=== PATIENT | male | born 2000 | race Caucasian/White ===

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

== ENCOUNTER 2022-03-18 01:35 | Emergency (ER) | payer OTHER ==
[2022-03-18 01:41] VITALS: RESP 16; TEMP 98.4
[2022-03-18] MEDS ORDERED: ORPHENADRINE 30 MG/ML 2 ML VIAL IM STA (01:53)
[2022-03-18] MEDS ORDERED: KETOROLAC 15 MG/ML 1 ML VIAL IM STA (01:53)
--- NOTE | 2022-03-18 02:19 | ED ---
General Adult HPI - General Chief complaint: Extremity Problem,Nontraumatic Stated complaint: Left leg pain Time Seen by Provider: 03/18/22 01:43 Source: patient Mode of arrival: ambulatory Limitations: no limitations - History of Present Illness Initial comments: Patient is a 21-year-old male presenting with chief complaint of leg pain. Patient states that he has had cramping in his calf for the last year. Patient is concerned for a blood clot. He denies any swelling or discoloration. Pain comes on randomly, can be at rest or during exertion. Patient also states that he has felt a "twinge" in his chest that started 6 months ago. He states that at times he can be, out of breath quickly. Patient does smoke marijuana and vapes heavily daily. No palpitations, weakness, lightheadedness, nausea, vomiting, headache, vision or hearing changes, fever, chills. - Related Data Previous Rx's Medication Instructions Recorded Cyclobenzaprine [Flexeril] 10 mg PO HS PRN #15 tab 03/18/22 Allergies Allergy/AdvReac Type Severity Reaction Status Date / Time No Known Allergies Allergy Verified 03/18/22 01:36 Review of Systems ROS Statement: Those systems with pertinent positive or pertinent negative responses have been documented in the HPI. ROS Other: All systems not noted in ROS Statement are negative. Past Medical History Past Medical History: No Reported History Additional Past Medical History / Comment(s): Chronic Migraines, IBS History of Any Multi-Drug Resistant Organisms: None Reported Past Surgical History: Adenoidectomy, Tonsillectomy Past Psychological History: ADD/ADHD, Anxiety Smoking Status: Vaper Past Alcohol Use History: None Reported Past Drug Use History: Marijuana General Exam Limitations: no limitations General appearance: alert, in no apparent distress Head exam: Present: atraumatic, normocephalic, normal inspection Eye exam: Present: normal appearance Neck exam: Present: normal inspection Respiratory exam: Present: normal lung sounds bilaterally. Absent: respiratory distress, wheezes, rales, rhonchi, stridor Cardiovascular Exam: Present: regular rate, normal rhythm, normal heart sounds. Absent: systolic murmur, diastolic murmur, rubs, gallop, clicks Left Lower Leg exam: Present: full ROM. Absent: tenderness, swelling, deformity Neurovascular tendon exam: Absent: no vascular compromise (Distal pulses 2+), abnormal cap refill, motor deficit, sensory deficit Neurological exam: Present: alert, oriented X3, CN II-XII intact Psychiatric exam: Present: normal affect, normal mood Skin exam: Present: warm, dry, intact, normal color. Absent: rash Course Vital Signs 03/18/22 03/18/22 03/18/22 01:38 02:02 04:07 Temperature 98.4 F Pulse Rate 89 75 Respiratory 16 16 Rate Blood Pressure 124/75 126/73 108/70 O2 Sat by Pulse 99 99 Oximetry Medical Decision Making - Medical Decision Making Was pt. sent in by a medical professional or institution (, TWIN, MANAGER HEMATOLOGY, urgent care, hospital, or long-term...) When possible be specific @ -[No] Did you speak to anyone other than the patient for history (EMS, parent, family, police, friend...)? What history was obtained from this source @ -[No] Did you review nursing and triage notes (agree or disagree)? Why? @ -[I reviewed and agree with nursing and triage notes] Were old charts reviewed (outside hosp., previous admission, EMS record, old EKG, old radiological studies, urgent care reports/EKG's, long-term records)? Report findings @ -[No old charts were reviewed] Differential Diagnosis (chest pain, altered mental status, abdominal pain women, abdominal pain men, vaginal bleeding, weakness, fever, dyspnea, syncope, headache, dizziness, GI bleed, back pain, seizure, CVA, palpatations, mental health)? @ -Differential includes DVT, muscle spasm, muscle strain EKG interpreted by me (3pts min.). @ -[As above] X-rays interpreted by me (1pt min.). @ -Chest x-ray shows no acute process CT interpreted by me (1pt min.). @ -[None done] U/S interpreted by me (1pt. min.). @ -[None done] What testing was considered but not performed or refused? (CT, X-rays, U/S, labs)? Why? @ -[None] What meds were considered but not given or refused? Why? @ -[None] Did you discuss the management of the patient with other professionals (professionals i.e. , TWIN, MANAGER HEMATOLOGY, lab, RT, psych nurse, social science research assistant, truck sales manager, teacher, weapons officer, manager of case management)? Give summary @ -[No] Was smoking cessation discussed for >3mins.? @ -[No] Was critical care preformed (if so, how long)? @ -[No] Were there social determinants of health that impacted care today? How? (Homelessness, low income, unemployed, alcoholism, drug addiction, transportation, low edu. Level, literacy, decrease access to med. care, senior living, rehab)? @ -[No] Was there de-escalation of care discussed even if they declined (Discuss DNR or withdrawal of care, Hospice)? DNR status @ -[No] What co-morbidities impacted this encounter? (DM, HTN, Smoking, COPD, CAD, Cancer, CVA, ARF, Chemo, Hep., AIDS, mental health diagnosis, sleep apnea, morbid obesity)? @ -[None] Was patient admitted / discharged? Hospital course, mention meds given and route, prescriptions, significant lab abnormalities, going to OR and other pertinent info. @ -Patient is a 21-year-old male presenting with chief complaint of calf pain. Pain is been ongoing for the last year. Patient also admits to a "twinge" in his chest that has been ongoing for the last 6 months. On physical examination there is no lower extremity swelling and negative Homans sign. Heart and lungs are clear to auscultation. D-dimer is less than 0.17. CBC and CMP are unremarkable. Chest x-ray shows no acute process. EKG shows no ischemic changes. Patient is educated on these findings. Patient was given Toradol and Norflex, on reassessment he reports improvement in his calf pain. Educated on supportive treatment for muscle spasms and provided with prescription for cyclobenzaprine. Do not take before driving or operating heavy machinery as it may cause drowsiness. Provided with prescription for outpatient lower extremity Doppler ultrasound. I instructed that the results be forwarded to the patient's PCP. Follow-up with PCP. Report back to ER with any new or worsening symptoms. Discussed return parameters and answered all questions. Patient conveyed verbal understanding and agreed to the plan. I discussed this case in detail with my attending Dr. Mcclure Undiagnosed new problem with uncertain prognosis? @ -[No] Drug Therapy requiring intensive monitoring for toxicity (Heparin, Nitro, Insulin, Cardizem)? @ -[No] Were any procedures done? @ -[No] Diagnosis/symptom? @ -Muscle spasm of calf Acute, or Chronic, or Acute on Chronic? @ -Acute Uncomplicated (without systemic symptoms) or Complicated (systemic symptoms)? @ -uncomplicated Side effects of treatment? @ -[No] Exacerbation, Progression, or Severe Exacerbation? @ -[No] Poses a threat to life or bodily function? How? (Chest pain, [place], [place], pneumonia, PE, COPD, DKA, ARF, appy, cholecystitis, CVA, Diverticulitis, Homicidal, Suicidal, threat to staff... and all critical care pts) @ -[No] - Lab Data Result diagrams: 03/18/22 03:19 03/18/22 03:19 Lab Results 03/18/22 03/18/22 03/18/22 Range/Units 03:19 03:19 03:19 WBC 8.4 (4.0-11.0) k/uL RBC 4.77 (4.30-5.90) m/uL Hgb 14.6 (13.0-17.5) gm/dL Hct 41.6 (39.0-53.0) % MCV 87.3 (80.0-100.0) fL MCH 30.6 (25.0-35.0) pg MCHC 35.1 (31.0-37.0) g/dL RDW 12.9 (11.5-15.5) % Plt Count 265 (150-450) k/uL MPV 7.1 Neutrophils % 55 % Lymphocytes % 37 % Monocytes % 5 % Eosinophils % 2 % Basophils % 1 % Neutrophils # 4.6 (1.3-7.7) k/uL Lymphocytes # 3.1 (1.0-4.8) k/uL Monocytes # 0.4 (0-1.0) k/uL Eosinophils # 0.1 (0-0.7) k/uL Basophils # 0.1 (0-0.2) k/uL D-Dimer <0.17 (<0.60) mg/L FEU Sodium 142 (137-145) mmol/L Potassium 3.7 (3.5-5.1) mmol/L Chloride 104 (98-107) mmol/L Carbon Dioxide 29 (22-30) mmol/L Anion Gap 9 mmol/L BUN 9 (9-20) mg/dL Creatinine 0.82 (0.66-1.25) mg/dL Est GFR (CKD-EPI)AfAm >90 (>60 ml/min/1.73 sqM) Est GFR (CKD-EPI)NonAf >90 (>60 ml/min/1.73 sqM) Glucose 100 H (74-99) mg/dL Calcium 9.4 (8.4-10.2) mg/dL Total Bilirubin 0.8 (0.2-1.3) mg/dL AST 26 (17-59) U/L ALT 18 (4-49) U/L Alkaline Phosphatase 40 (38-126) U/L Total Protein 7.9 (6.3-8.2) g/dL Albumin 5.2 H (3.5-5.0) g/dL Disposition Clinical Impression: Muscle spasm of calf Disposition: HOME SELF-CARE Condition: Good Instructions (If sedation given, give patient instructions): Muscle Spasm (ED) Additional Instructions: Follow-up with PCP. You have been provided a prescription for an outpatient ultrasound of the left leg. Report back to ER with any new or worsening symptoms. Take medication as prescribed. Do not take cyclobenzaprine before driving or operating heavy machinery as it may cause drowsiness. Stay well- hydrated. Prescriptions: Cyclobenzaprine [Flexeril] 10 mg PO HS PRN #15 tab PRN Reason: Spasms Is patient prescribed a controlled substance at d/c from ED?: No Referrals: José Manuel Boggs MD [Primary Care Provider] - 1-2 days Time of Disposition: 03:55
--- NOTE | 2022-03-18 02:20 | XR ---
EXAMINATION TYPE: XR chest 2V DATE OF EXAM: 03/18/2022 COMPARISON: 01/16/2019 HISTORY: Difficulty breathing TECHNIQUE: FINDINGS: Heart and mediastinum are normal. Lungs are clear. Diaphragm is normal. Bony thorax is inta ct. IMPRESSION: Normal chest. No change.
[2022-03-18 03:30] LABS: Basophils # (A) 0.1 k/uL (0-0.2); Basophils % (A) 1 %; Eosinophils # (A) 0.1 k/uL (0-0.7); Eosinophils % (A) 2 %; HCT 41.6 % (39.0-53.0); HGB 14.6 gm/dL (13.0-17.5); Lymphocytes # (A) 3.1 k/uL (1.0-4.8); Lymphocytes % (A) 37 %; MCH 30.6 pg (25.0-35.0); MCHC 35.1 g/dL (31.0-37.0); MCV 87.3 fL (80.0-100.0); Mean Platelet Volume 7.1; Monocytes # (A) 0.4 k/uL (0-1.0); Monocytes % (A) 5 %; Neutrophils # (A) 4.6 k/uL (1.3-7.7); Neutrophils % (A) 55 %; Platelet Count 265 k/uL (150-450); RBC 4.77 m/uL (4.30-5.90); RDW 12.9 % (11.5-15.5); WBC 8.4 k/uL (4.0-11.0)
[2022-03-18 03:36] LABS: ALT 18 U/L (4-49); AST 26 U/L (17-59); African American GFR (CKD) >90 (>60 ml/min/1.73 sqM); Albumin 5.2 g/dL (3.5-5.0); Alkaline Phosphatase 40 U/L (38-126); Anion Gap 9 mmol/L; Blood Urea Nitrogen 9 mg/dL (9-20); Calcium 9.4 mg/dL (8.4-10.2); Carbon Dioxide 29 mmol/L (22-30); Chloride 104 mmol/L (98-107); Glucose 100 mg/dL (74-99); Non-African American GFR(CKD) >90 (>60 ml/min/1.73 sqM); Potassium 3.7 mmol/L (3.5-5.1); Sodium 142 mmol/L (137-145); Total Bilirubin 0.8 mg/dL (0.2-1.3); Total Protein 7.9 g/dL (6.3-8.2)
[2022-03-18 04:08] VITALS: BP 108/70; PULSE 75
== END 2022-03-18 04:08 | disposition home or self-care (01) ==
LOC: EC 01:35
DX: M62.831 Muscle spasm of calf (principal); F17.290 Nicotine dependence, other tobacco product, uncomplicated; F12.90 Cannabis use, unspecified, uncomplicated; Z90.89 Acquired absence of other organs
CPT/HCPCS: 36415; 93005; 85379; 80053; 85025; 71046; 99284; 96372; J2360; J1885

== ENCOUNTER 2024-06-26 21:44 | Emergency (ER) | payer OTHER ==
--- NOTE | 2024-06-26 22:18 | ED ---
General Adult HPI - General Source: patient, RN notes reviewed Mode of arrival: ambulatory Limitations: no limitations <Haritha Pizano - Last Filed: 06/27/24 00:00> <Jett Chow - Last Filed: 06/27/24 01:32> - General Chief complaint: Anxiety Stated complaint: anxiety Time Seen by Provider: 06/26/24 21:53 - History of Present Illness Initial comments: 23-year-old male with no reported medical conditions presenting to the emergency department with mother and fianc with multiple complaints. Patient states that over the past month he has been having intermittent episodes of what he has been calling panic attacks where he feels extremely anxious feels like his heart racing and is having difficulty breathing. Patient states a lot of the anxiety is stemming from the masses that he has noticed on his neck/throat. He states that the masses have been present for about a year and will occasionally fluctua te in size. Denies dysphagia, dyspnea, or chest pains. He reports an unintended weight loss and night sweats in addition to overall fatigue. (Haritha Pizano) - Related Data Previous Rx's Medication Instructions Recorded Cyclobenzaprine [Flexeril] 10 mg PO HS PRN #15 tab 03/18/22 Allergies Allergy/AdvReac Type Severity Reaction Status Date / Time No Known Allergies Allergy Verified 06/26/24 21:51 Review of Systems ROS Other: All systems not noted in ROS Statement are negative. <Haritha Pizano - Last Filed: 06/27/24 00:00> ROS Other: All systems not noted in ROS Statement are negative. <Jett Chow - Last Filed: 06/27/24 01:32> ROS Statement: Those systems with pertinent positive or pertinent negative responses have been documented in the HPI. Past Medical History Past Medical History: No Reported History Additional Past Medical History / Comment(s): Chronic Migraines, IBS History of Any Multi-Drug Resistant Organisms: None Reported Past Surgical History: Adenoidectomy, Tonsillectomy Past Psychological History: ADD/ADHD, Anxiety Smoking Status: Vaper Past Alcohol Use History: None Reported Past Drug Use History: Marijuana <Haritha Pizano - Last Filed: 06/27/24 00:00> General Exam Limitations: no limitations General appearance: alert, in no apparent distress ENT exam: Present: normal exam, mucous membranes moist Neck exam: Present: normal inspection, tenderness, full ROM, lymphadenopathy. Absent: meningismus Respiratory exam: Present: normal lung sounds bilaterally. Absent: respiratory distress, wheezes, rales, rhonchi, stridor Cardiovascular Exam: Present: regular rate, normal rhythm, normal heart sounds. Absent: systolic murmur, diastolic murmur, rubs, gallop, clicks GI/Abdominal exam: Present: soft, normal bowel sounds. Absent: distended, tenderness, guarding, rebound, rigid Extremities exam: Present: normal inspection, full ROM, normal capillary refill. Absent: tenderness, pedal edema, joint swelling, calf tenderness Neurological exam: Present: alert, oriented X3, CN II-XII intact Psychiatric exam: Present: normal affect, normal mood, anxious <Haritha Pizano - Last Filed: 06/27/24 00:00> Course Vital Signs 06/26/24 21:47 Temperature 98.2 F Pulse Rate 101 H Respiratory 20 Rate Blood Pressure 114/85 O2 Sat by Pulse 99 Oximetry Medical Decision Making - Lab Data Result diagrams: 06/26/24 22:32 06/26/24 22:32 <Haritha Pizano - Last Filed: 06/27/24 00:00> - Lab Data Result diagrams: 06/26/24 22:32 06/26/24 22:32 <Jett Chow - Last Filed: 06/27/24 01:32> - Medical Decision Making Was pt. sent in by a medical professional or institution (, PA, INGOT BUGGY OPERATOR, urgent care, hospital, or long-term...) When possible be specific @ -[No] Did you speak to anyone other than the patient for history (EMS, parent, family, police, friend...)? What history was obtained from this source @ -[No] Did you review nursing and triage notes (agree or disagree)? Why? @ -[I reviewed and agree with nursing and triage notes] Were old charts reviewed (outside hosp., previous admission, EMS record, old EKG, old radiological studies, urgent care reports/EKG's, long-term records)? Report findings @ -[No old charts were reviewed] Differential Diagnosis (chest pain, altered mental status, abdominal pain women, abdominal pain men, vaginal bleeding, weakness, fever, dyspnea, syncope, headache, dizziness, GI bleed, back pain, seizure, CVA, palpatations, mental health, musculoskeletal)? @ -Differential Mental Health Depression, anxiety, bipolar, psychosis, schizophrenia, borderline personality, situational depression, adjustment disorder, behavioral disorder, brain tumor, malingering, substance abuse, encephalopathy, medication reaction, dementia, hypothyroidism, degenerative neurologic disorder, lupus.... This is not meant to be all-inclusive list EKG interpreted by me (3pts min.). @ -Completed at 2229 sinus rhythm with a ventricular rate of 70, SD interval 111, QRS 96, QTc 386. X-rays interpreted by me (1pt min.). @ -[None done] CT interpreted by me (1pt min.). @ -[None done] U/S interpreted by me (1pt. min.). @ -[None done] What testing was considered but not performed or refused? (CT, X-rays, U/S, labs)? Why? @ -[None] What meds were considered but not given or refused? Why? @ -[None] Did you discuss the management of the patient with other professionals (professionals i.e. , PA, INGOT BUGGY OPERATOR, lab, RT, psych nurse, social work manager, e business project manager, teacher, child support officer, case investigator)? Give summary @ -[No] Was smoking cessation discussed for >3mins.? @ -[No] Was critical care preformed (if so, how long)? @ -[No] Were there social determinants of health that impacted care today? How? (Homelessness, low income, unemployed, alcoholism, drug addiction, transportation, low edu. Level, literacy, decrease access to med. care, halfway, rehab)? @ -[No] Was there de-escalation of care discussed even if they declined (Discuss DNR or withdrawal of care, Hospice)? DNR status @ -[No] What co-morbidities impacted this encounter? (DM, HTN, Smoking, COPD, CAD, Cancer, CVA, ARF, Chemo, Hep., AIDS, mental health diagnosis, sleep apnea, morbid obesity)? @ -[None] Was patient admitted / discharged? Hospital course, mention meds given and route, prescriptions, significant lab abnormalities, going to OR and other pertinent info. @ -24 male presents emergency department with complaints of intermittent anxiety/panic attacks and neck swelling. There is cervical lymphadenopathy noted on examination. patient is mildly anxious and is provided with dose of ativan. Initial vitals reveal mild tachycardia. EKG shows a sinus rhythm. Laboratory testing reveals mildly elevated white cell 11.19, hypokalemia of 3.2 and patient provided with oral resupplementation, and toxicology positive for THC. Undiagnosed new problem with uncertain prognosis? @ -[No] Drug Therapy requiring intensive monitoring for toxicity (Heparin, Nitro, Insulin, Cardizem)? @ -[No] Were any procedures done? @ -[No] Diagnosis/symptom? @ -[default] Acute, or Chronic, or Acute on Chronic? @ -[default] Uncomplicated (without systemic symptoms) or Complicated (systemic symptoms)? @ -[default] Side effects of treatment? @ -[No] Exacerbation, Progression, or Severe Exacerbation? @ -[No] Poses a threat to life or bodily function? How? (Chest pain, [place], [place], pneumonia, PE, COPD, DKA, ARF, appy, cholecystitis, CVA, Diverticulitis, Homicidal, Suicidal, threat to staff... and all critical care pts) @ -[No] (Haritha Pizano) Physician executive personal assistant, Haritha. Plan at signout was to follow-up with pending imaging studies. CT soft tissue neck ordered for evaluation of cervical masses. Acceptable range. CT soft tissue of the neck shows prominent cervical lymph nodes and lingual tonsils. Patient reevaluated bedside at 1:30 AM found to be stable condition. Patient not showing any signs of distress. (Jett Chow) - Lab Data Lab Results 06/26/24 06/26/24 06/26/24 Range/Units 22:32 22:32 22:32 WBC 11.19 H (4.50-10.00) 10*3/uL RBC 4.86 (4.40-5.60) 10*6/uL Hgb 15.4 (13.0-17.0) g/dL Hct 41.8 (39.6-50.0) % MCV 86.0 (80.0-97.0) fL MCH 31.7 (27.0-32.0) pg MCHC 36.8 (32.0-37.0) g/dL Plt Count 329 (140-440) 10*3/uL MPV 9.5 (9.5-12.2) fL Immature Gran % (Auto) 0.4 % Neutrophils % 80.5 % Lymphocytes % 15.0 % Monocytes % 3.5 % Eosinophils % 0.2 % Basophils % 0.4 % Immature Gran # 0.04 (0.00-0.04) 10*3/uL Neutrophils # 9.01 H (1.80-7.70) 10*3/uL Lymphocytes # 1.68 (0.90-5.00) 10*3/uL Monocytes # 0.39 (0.20-1.00) 10*3/uL Eosinophils # 0.02 L (0.04-0.35) 10*3/uL Basophils # 0.05 (0.00-0.10) 10*3/uL Sodium 141 (137-145) mmol/L Potassium 3.2 L (3.5-5.1) mmol/L Chloride 103 (98-107) mmol/L Carbon Dioxide 25 (22-30) mmol/L Anion Gap 13 mmol/L BUN 9 (9-20) mg/dL Creatinine 0.69 (0.66-1.25) mg/dL Est GFR (CKD-EPI)AfAm >90 (>60 ml/min/1.73 sqM) Est GFR (CKD-EPI)NonAf >90 (>60 ml/min/1.73 sqM) Glucose 108 H (74-99) mg/dL Calcium 10.1 (8.4-10.2) mg/dL Magnesium 2.0 (1.6-2.3) mg/dL Total Bilirubin 0.8 (0.2-1.3) mg/dL AST 24 (17-59) U/L ALT 15 (4-49) U/L Alkaline Phosphatase 57 (38-126) U/L Total Protein 7.8 (6.3-8.2) g/dL Albumin 5.0 (3.5-5.0) g/dL TSH 3.120 (0.465-4.680) mIU/L Urine Opiates Screen Not Detected (NotDetected) Ur Oxycodone Screen Not Detected (NotDetected) Urine Methadone Screen Not Detected (NotDetected) Ur Barbiturates Screen Not Detected (NotDetected) U Tricyclic Antidepress Not Detected (NotDetected) Ur Phencyclidine Scrn Not Detected (NotDetected) Ur Amphetamines Screen Not Detected (NotDetected) U Methamphetamines Scrn Not Detected (NotDetected) U Benzodiazepines Scrn Not Detected (NotDetected) Urine Cocaine Screen Not Detected (NotDetected) U Marijuana (THC) Screen Detected H (NotDetected) Heterophile Antibody (Negative) 06/27/24 Range/Units 00:55 WBC (4.50-10.00) 10*3/uL RBC (4.40-5.60) 10*6/uL Hgb (13.0-17.0) g/dL Hct (39.6-50.0) % MCV (80.0-97.0) fL MCH (27.0-32.0) pg MCHC (32.0-37.0) g/dL Plt Count (140-440) 10*3/uL MPV (9.5-12.2) fL Immature Gran % (Auto) % Neutrophils % % Lymphocytes % % Monocytes % % Eosinophils % % Basophils % % Immature Gran # (0.00-0.04) 10*3/uL Neutrophils # (1.80-7.70) 10*3/uL Lymphocytes # (0.90-5.00) 10*3/uL Monocytes # (0.20-1.00) 10*3/uL Eosinophils # (0.04-0.35) 10*3/uL Basophils # (0.00-0.10) 10*3/uL Sodium (137-145) mmol/L Potassium (3.5-5.1) mmol/L Chloride (98-107) mmol/L Carbon Dioxide (22-30) mmol/L Anion Gap mmol/L BUN (9-20) mg/dL Creatinine (0.66-1.25) mg/dL Est GFR (CKD-EPI)AfAm (>60 ml/min/1.73 sqM) Est GFR (CKD-EPI)NonAf (>60 ml/min/1.73 sqM) Glucose (74-99) mg/dL Calcium (8.4-10.2) mg/dL Magnesium (1.6-2.3) mg/dL Total Bilirubin (0.2-1.3) mg/dL AST (17-59) U/L ALT (4-49) U/L Alkaline Phosphatase (38-126) U/L Total Protein (6.3-8.2) g/dL Albumin (3.5-5.0) g/dL TSH (0.465-4.680) mIU/L Urine Opiates Screen (NotDetected) Ur Oxycodone Screen (NotDetected) Urine Methadone Screen (NotDetected) Ur Barbiturates Screen (NotDetected) U Tricyclic Antidepress (NotDetected) Ur Phencyclidine Scrn (NotDetected) Ur Amphetamines Screen (NotDetected) U Methamphetamines Scrn (NotDetected) U Benzodiazepines Scrn (NotDetected) Urine Cocaine Screen (NotDetected) U Marijuana (THC) Screen (NotDetected) Heterophile Antibody Negative (Negative) Disposition <Haritha Pizano - Last Filed: 06/27/24 00:00> Is patient prescribed a controlled substance at d/c from ED?: No Time of Disposition: 01:32 <Jett Chow - Last Filed: 06/27/24 01:32> Clinical Impression: Anxiety reaction Disposition: HOME SELF-CARE Condition: Good Instructions (If sedation given, give patient instructions): Generalized Anxiety Disorder (ED) Referrals: None,Stated [Primary Care Provider] - 1-2 days
[2024-06-26] MEDS: LORazepam 1 MG TAB PO STA (22:48)
[2024-06-26 23:03] LABS: Basophils # (A) 0.05 10*3/uL (0.00-0.10); Basophils % (A) 0.4 %; Eosinophils # (A) 0.02 10*3/uL (0.04-0.35); Eosinophils % (A) 0.2 %; HCT 41.8 % (39.6-50.0); HGB 15.4 g/dL (13.0-17.0); Lymphocytes # (A) 1.68 10*3/uL (0.90-5.00); MCH 31.7 pg (27.0-32.0); MCHC 36.8 g/dL (32.0-37.0); Mean Platelet Volume 9.5 fL (9.5-12.2); Monocytes # (A) 0.39 10*3/uL (0.20-1.00); Monocytes % (A) 3.5 %; Neutrophils # (A) 9.01 10*3/uL (1.80-7.70); Neutrophils % (A) 80.5 %; Platelet Count 329 10*3/uL (140-440); RBC 4.86 10*6/uL (4.40-5.60); RDW 12.2 % (11.5-14.5); WBC 11.19 10*3/uL (4.50-10.00)
[2024-06-26 23:14] LABS: ALT 15 U/L (4-49); AST 24 U/L (17-59); African American GFR (CKD) >90 (>60 ml/min/1.73 sqM); Alkaline Phosphatase 57 U/L (38-126); Anion Gap 13 mmol/L; Blood Urea Nitrogen 9 mg/dL (9-20); Calcium 10.1 mg/dL (8.4-10.2); Carbon Dioxide 25 mmol/L (22-30); Chloride 103 mmol/L (98-107); Glucose 108 mg/dL (74-99); Non-African American GFR(CKD) >90 (>60 ml/min/1.73 sqM); Potassium 3.2 mmol/L (3.5-5.1); Sodium 141 mmol/L (137-145); Total Bilirubin 0.8 mg/dL (0.2-1.3); Total Protein 7.8 g/dL (6.3-8.2)
[2024-06-26 23:47] LABS: Amphetamine Screen,Urine Not Detected (NotDetected); Barbiturate Screen,Urine Not Detected (NotDetected); Benzodiazepines Screen,Urine Not Detected (NotDetected); Cocaine Screen,Urine Not Detected (NotDetected); Methadone Screen, Urine Not Detected (NotDetected); Opiate Screen,Urine Not Detected (NotDetected); Oxycodone Screen, Urine Not Detected (NotDetected); Phencyclidine Screen,Urine Not Detected (NotDetected); Tricyclic Antidepressant,Urine Not Detected (NotDetected); Urn Cannabinoid Scrn Detected (NotDetected)
[2024-06-27] MEDS: POTASSIUM CHLORIDE ER 20 MEQ TAB.ER PO STA (00:19)
--- NOTE | 2024-06-27 01:05 | CT ---
EXAM: CT Neck With Intravenous Contrast CLINICAL HISTORY: ITS.REASON CT Reason: lymphadenopathy TECHNIQUE: Axial computed tomography images of the neck with intravenous contrast. CTDI is 5.3 mGy and DLP is 198.1 mGy-cm. This CT exam was performed using one or more of the following dose reduction techniques: automated exposure control, adjustment of the mA and/or kV according to patient size, and/or use of iterative reconstruction technique. COMPARISON: No relevant prior studies available. FINDINGS: Nasal cavity/septum: Unremarkable. Nasopharynx: Unremarkable. Oropharynx: Enlargement of tonsils. No peritonsillar abscess. Hypopharynx: Unremarkable. Larynx: Unremarkable. Normal epiglottis. Trachea: Unremarkable. Retropharyngeal space: Unremarkable. Submandibular/parotid glands: Unremarkable. Glands are normal in size. Thyroid: Unremarkable. No enlarged or calcified nodules. Bones/joints: No acute fracture. Soft tissues: Unremarkable. Vasculature: No acute findings. Lymph nodes: Unremarkable. No lymphadenopathy. Sinuses: Unremarkable as visualized. No acute sinusitis. Lung apices: Unremarkable as visualized. IMPRESSION: Prominent cervical lymph nodes and lingual tonsils. No evidence of abscess or epiglottitis.
[2024-06-27 01:44] VITALS: BP 111/70; PULSE 76; RESP 18; TEMP 98
== END 2024-06-27 01:44 | disposition home or self-care (01) ==
LOC: EC 21:44
DX: F41.1 Generalized anxiety disorder (principal); F17.290 Nicotine dependence, other tobacco product, uncomplicated
CPT/HCPCS: 36415; 93005; 80053; 84443; 83735; 85025; 80306; 70491; 99284; Q9967; 86308